=== PATIENT | female | born 1995 | race Native Hawaiian/Other Pacific Islander ===

== ENCOUNTER 2018-06-19 21:47 | Emergency (ER) | payer BC ==
[~2018-06-19] VITALS: Ht 160 cm; Wt 49.0 kg
[~2018-06-19 21:47] MED LIST: [UNRECOGNIZED DRUG - OTHER] OR
[2018-06-19 22:03] VITALS: BP 115/70; TEMP 98.6
== END 2018-06-19 22:49 | disposition home or self-care (01) ==
LOC: ED 21:47
DX: L02.416 Cutaneous abscess of left lower limb (principal)
CPT/HCPCS: 99282

== ENCOUNTER 2022-05-08 13:21 | Emergency (ER) | payer OTHER ==
[~2022-05-08] VITALS: Ht 160 cm; Wt 49.0 kg
[2022-05-08 13:31] VITALS: TEMP 97.1
[2022-05-08 18:37] VITALS: BP 126/84
== END 2022-05-08 18:39 | disposition home or self-care (01) ==
LOC: ED 13:21
DX: S09.8XXA Other specified injuries of head, initial encounter (principal); W22.8XXA Striking against or struck by other objects, initial encounter; Y92.89 Other specified places as the place of occurrence of the external cause
CPT/HCPCS: 99282